=== PATIENT | male | born 1980 | race Caucasian/White ===

== ENCOUNTER 2020-01-08 00:05 | Emergency (ER) | payer BC ==
[~2020-01-08] VITALS: Ht 193 cm; Wt 81.6 kg
[2020-01-08 00:30] VITALS: BP 125/75
--- NOTE | 2020-01-08 00:30 | NUR ---
ED Nurse Note: Patient walked in from home d/t cough for 3 days that is unrelieved. Patient stated he is taking Tamiflu and Tylenol for fever. Patient aao x 4 and ambulatory. No acute distress noted.
--- NOTE | 2020-01-08 00:32 | NUR ---
ED Nurse Note: ERMD at bedside
--- NOTE | 2020-01-08 00:37 | Emergency Room Report ---
History of Present Illness General Chief Complaint: Flu Like Symptoms Source: Patient Present Illness [facility] This is a 39-year-old male with no past medical history presents with chief complaint of flulike illness. Onset was 2 to 3 days ago. He had body pain and fever. Initially fever was better with Tylenol. Fever keep climbing higher and higher today. He he was prescribed Tamiflu which she took this evening. He came in today because the fever spiked up to almost 103. He has diffuse body pain. Slight cough. No nausea no vomiting. Pain is 9 out of 10. Worse with exertion. Better with rest. Because of elevated fever he came in. Denies any other complaint. Allergies: Coded Allergies: AZITHROMYCIN (Verified Allergy, Unknown, 01/08/20) SHELLFISH DERIVED (Verified Allergy, Unknown, 01/08/20) Patient History Past Medical History: see triage record, old chart reviewed Past Surgical History: none Pertinent Family History: none Social History: Denies: smoking Immunizations: other Reviewed Nursing Documentation: PMH: Agreed; PSxH: Agreed Nursing Documentation-PMH Past Medical History: No Stated History Review of Systems Constitutional: Reports: fever, malaise, weakness Eye: Denies: eye pain, blurred vision ENT: Denies: ear pain, nose congestion, throat swelling Respiratory: Denies: cough, shortness of breath Cardiovascular: Denies: chest pain, palpitations Gastrointestinal: Denies: abdominal pain, diarrhea, nausea, vomiting Musculoskeletal: Reports: joint pain, muscle pain; Denies: back pain Skin: Denies: rash Neurological: Denies: headache, numbness Endocrine: Denies: increased thirst, increased urine Hematologic/Lymphatic: Denies: easy bruising All Other Systems: negative except mentioned in HPI Physical Exam Vital Signs Date Time Temp Pulse Resp B/P (MAP) Pulse Ox O2 Delivery O2 Flow Rate FiO2 01/08/20 00:20 100.9 88 16 121/66 (84) 95 Room Air Vitals with fever Sp02 EP Interpretation: reviewed, normal General Appearance: well appearing, no apparent distress, alert, other - Ill- appearing Head: normocephalic, atraumatic Eyes: bilateral eye PERRL, bilateral eye EOMI ENT: hearing grossly normal, normal pharynx Neck: full range of motion, supple, no meningismus Respiratory: chest non-tender, lungs clear, normal breath sounds Cardiovascular #1: regular rate, rhythm, no murmur Gastrointestinal: normal bowel sounds, non tender, no mass, no organomegaly, no bruit, non-distended Musculoskeletal: back normal, normal range of motion, gait/station normal Psychiatric: mood/affect normal Medical Decision Making Diagnostic Impression: Primary Impression: Influenza ER Course Patient presents with influenza-like symptoms. He has no evidence of bacterial infection. No evidence of any meningitis, sepsis, pneumonia or other serious bacterial infection. Will discharge home. He felt better after IV fluids and meds. Last Vital Signs Date Time Temp Pulse Resp B/P (MAP) Pulse Ox O2 Delivery O2 Flow Rate FiO2 01/08/20 00:20 100.9 88 16 121/66 (84) 95 Room Air Status: improved Disposition: HOME, SELF-CARE Condition: Stable Scripts Ibuprofen* (MOTRIN*) 600 Mg Tablet 600 MG ORAL THREE TIMES A DAY, #30 TAB 0 Refills Prov: Douglas Schroeder MD 01/08/20 Additional Instructions: Increase fluids. Follow-up with your doctor in 7 days. Return if symptoms worsen. Douglas Schroeder MD Jan 08, 2020 00:37
[2020-01-08] MEDS ORDERED: Ketorolac 30mg Inj IV ONE (00:45)
[2020-01-08] MEDS ORDERED: Dexamethasone 4mg/ml vial IVP ONE (00:45)
[2020-01-08 01:00] LABS: BASOPHILS % (AUTO) 1.4 % (0.0-2.0); EOSINOPHILS % (AUTO) 0.1 % (0.0-3.0); HEMATOCRIT 47.6 % (42.0-52.0); HEMOGLOBIN 16.9 G/DL (14.2-18.0); LYMPHOCYTES % (AUTO) 15.7 % (20.0-45.0); MEAN CORPUSCULAR VOLUME 90 FL (80-99); MONOCYTES % (AUTO) 9.6 % (1.0-10.0); NEUTROPHILS % (AUTO) 73.3 % (45.0-75.0); PLATELET COUNT 150 K/UL (150-450); RED BLOOD COUNT 5.29 M/UL (4.70-6.10); RED CELL DISTRIBUTION WIDTH 11.2 % (11.6-14.8); WHITE BLOOD COUNT 3.5 K/UL (4.8-10.8)
[2020-01-08 01:15] LABS: ANION GAP 8 mmol/L (5-15); BLOOD UREA NITROGEN 14 mg/dL (7-18); CALCIUM 9.5 MG/DL (8.5-10.1); CARBON DIOXIDE 29 MMOL/L (21-32); CHLORIDE 98 MMOL/L (98-107); CREATININE 1.2 MG/DL (0.55-1.30); POTASSIUM 3.7 MMOL/L (3.5-5.1); SODIUM 135 MMOL/L (136-145)
[2020-01-08] MEDS ORDERED: IBUPROFEN600 MG ORAL (01:47)
[2020-01-08 02:00] VITALS: BP 124/78
--- NOTE | 2020-01-08 02:00 | NUR ---
ER DISCHARGE NOTE: Patient is cleared to be discharged per ERMD, pt is aox4, on room air, with stable vital signs. pt was given dc instructions, pt was able to verbalize understanding, pt id band and iv site removed without complications. pt is able to ambulate with steady gait. pt took all belongings. pt stable upon discharge.
== END 2020-01-08 02:00 | disposition home or self-care (01) ==
LOC: EMR 00:28
DX: J11.1 Influenza due to unidentified influenza virus with other respiratory manifestations (principal); Z88.1 Allergy status to other antibiotic agents; Z91.013 Allergy to seafood
CPT/HCPCS: 36415; 80048; 85025; 96361; 96374; 96375; 99284; J1100; J1885; J7030